=== PATIENT | female | born 1990 | race Caucasian/White ===

== ENCOUNTER 2017-06-18 07:33 | Emergency (ER) | payer MEDICAID ==
[2017-06-18 08:16] LABS: Bilirubin,Urine NEG (Negative); Blood,Urine NEG (Negative); Ketones,Urine NEG (Negative); Leukocyte Esterase,Urine NEG (Negative); Nitrite,Urine NEG (Negative); Protein,Urine <15 mg/dL mg/dL (Negative); Urobilinogen,Urine < 2.0 mg/dL (<2.0)
[2017-06-18 08:24] LABS: RBC,Urine < 1.0 /HPF (0.0-6.0); WBC,Urine < 1.0 /HPF (0.0-6.0)
--- NOTE | 2017-06-18 09:20 | Emergency Department Report ---
ED Female HPI - General Chief complaint: Vaginal Bleeding Stated complaint: VAGINAL BLEEDING/14 WEEKS PREG Time Seen by Provider: 06/18/17 09:08 Source: patient Mode of arrival: Ambulatory Limitations: No Limitations - History of Present Illness Initial comments: This is a 26-year-old female nontoxic, well nourished in appearance, no acute signs of distress presents to the ED complaining of slight vaginal bleeding that occurred this morning x1. They stated she woke up with slight vaginal bleeding noted in her underwear. Patient stated that she laid down and drank some water and has not had any vaginal bleeding. Patient stated episode has only occurred once and described as slight. Patient denies any abdominal pain, or cramping. Patient stated her last appointment with member services coordinator normal ultrasound and stated she is currently with twins. Patient denies any nausea or vomiting, chest pain, shortness of breath, diarrhea, dizziness, fever, chills, numbness or tingling. Patient denies any allergies or past medical history besides asthma. MD Complaint: vaginal bleeding -: Gradual, days(s) (1) Radiation: non-radiating Severity scale (0 -10): 0 Consistency: intermittent Improves with: none Worsens with: none Are you Now?: Yes Last Menstrual Period: 02/27/17 EDC: 12/04/17 Associated Symptoms: vaginal bleeding. denies: vaginal discharge, abdominal pain, nausea/vomiting, fever/chills, headaches, loss of appetite, dysuria, hematuria, rash, seizure, shortness of breath, syncope, weakness - Related Data Sexually active: Yes : 3 Para: 2 A: 0 Allergies Allergy/AdvReac Type Severity Reaction Status Date / Time No Known Allergies Allergy Verified 06/18/17 07:50 ED Review of Systems ROS: Stated complaint: VAGINAL BLEEDING/14 WEEKS PREG Other details as noted in HPI Constitutional: denies: chills, fever Eyes: denies: eye pain, eye discharge, vision change ENT: denies: ear pain, throat pain Respiratory: denies: cough, shortness of breath, wheezing Cardiovascular: denies: chest pain, palpitations Endocrine: no symptoms reported Gastrointestinal: denies: abdominal pain, nausea, diarrhea Genitourinary: denies: urgency, dysuria, discharge Musculoskeletal: denies: back pain, joint swelling, arthralgia Skin: denies: rash, lesions Neurological: denies: headache, weakness, paresthesias Psychiatric: denies: anxiety, depression Hematological/Lymphatic: denies: easy bleeding, easy bruising ED Past Medical Hx - Past Medical History Previous Medical History?: Yes Hx Asthma: Yes - Surgical History Past Surgical History?: No - Social History Smoking Status: Never Smoker Substance Use Type: None ED Physical Exam - General Limitations: No Limitations General appearance: alert, in no apparent distress - Head Head exam: Present: atraumatic, normocephalic, normal inspection - Eye Eye exam: Present: normal appearance, PERRL, EOMI. Absent: scleral icterus, conjunctival injection, nystagmus, periorbital swelling, periorbital tenderness Pupils: Present: normal accommodation - ENT ENT exam: Present: normal exam, normal orophraynx, mucous membranes moist, TM's normal bilaterally, normal external ear exam - Neck Neck exam: Present: normal inspection, full ROM. Absent: tenderness, meningismus, lymphadenopathy, thyromegaly - Respiratory Respiratory exam: Present: normal lung sounds bilaterally. Absent: respiratory distress, wheezes, rales, rhonchi, stridor, chest wall tenderness, accessory muscle use, decreased breath sounds, prolonged expiratory - Cardiovascular Cardiovascular Exam: Present: regular rate, normal rhythm, normal heart sounds. Absent: bradycardia, tachycardia, irregular rhythm, systolic murmur, diastolic murmur, rubs, gallop - GI/Abdominal GI/Abdominal exam: Present: soft, normal bowel sounds. Absent: distended, tenderness, guarding, rebound, rigid, diminished bowel sounds - Rectal Rectal exam: Present: deferred - External exam: Present: normal external exam, other (hose wrapper Adri Torress present during exam). Absent: erythema, swelling, lesions, lacerations , ecchymosis, bleeding Speculum exam: Present: normal speculum exam, other (hose wrapper Adri Torress present during exam. OS closed.). Absent: erythema, vaginal discharge, cervical discharge, vaginal bleeding, foreign body, tissue, laceration Bi-manual exam: Present: normal bi-manual exam, other (hose wrapper Adri Torress present during exam). Absent: cervical motion tendernes, adnexal tenderness, adnexal mass, uterine enlargement, uterine tenderness - Extremities Exam Extremities exam: Present: normal inspection, full ROM, normal capillary refill. Absent: tenderness, pedal edema, joint swelling, calf tenderness - Back Exam Back exam: Present: normal inspection, full ROM. Absent: tenderness, CVA tenderness (R), CVA tenderness (L), muscle spasm, paraspinal tenderness, vertebral tenderness, rash noted - Neurological Exam Neurological exam: Present: alert, oriented X3, CN II-XII intact, normal gait, reflexes normal - Psychiatric Psychiatric exam: Present: normal affect, normal mood - Skin Skin exam: Present: warm, dry, intact, normal color. Absent: rash ED Course Vital Signs 06/18/17 06/18/17 06/18/17 07:43 07:47 11:53 Temperature 98.5 F 98.5 F 98.6 F Pulse Rate 88 88 86 Respiratory 20 18 Rate Blood Pressure 111/68 Blood Pressure 111/68 112/70 [Right] O2 Sat by Pulse 100 100 99 Oximetry - Reevaluation(s) Reevaluation #1: 06/18/17 09:24 Patient is speaking in full sentences with no signs of distress noted. ED Medical Decision Making - Medical Decision Making 26-year-old female presents with vaginal bleeding 1. Ultrasound abdomen and transvaginal has been obtained with normal findings and dictated a radiologist. Patient notified of ultrasound but no further question about the patient. Patient was instructed to follow-up with a member services coordinator in 24 hours or if symptoms worsen or continue presented to the emergency room as soon as possible. Quantitative h[place] with [id number] results. At time time of discharge, the patient does not seem toxic or ill in appearance. No acute signs of distress noted. Patient agrees to discharge treatment plan of care. No further questions noted by the patient. Ultrasound impression and dictated by Dr. Charles; twin A heart rate is 145 age is 15 weeks 1 day estimated due date 12/09/17. Twin B heart rate 154 age 14 weeks 6 days estimated due date 12/01/17 Critical care attestation.: If time is entered above; I have spent that time in minutes in the direct care of this critically ill patient, excluding procedure time. ED Disposition Clinical Impression: Vaginal bleeding Disposition: DC-01 TO HOME OR SELFCARE Is pt being admited?: No Does the pt Need Aspirin: No Condition: Stable Additional Instructions: Follow-up with a member services coordinator in 24 hours or if symptoms worsen or continue presented to the emergency room as soon as possible. Referrals: PRIMARY CARE, [Primary Care Provider] - 3-5 Days ZHAO CAST MD [Staff Physician] - 3-5 Days [facility] [Outside] - 3-5 Days [facility] [Outside] - 3-5 Days Forms: Work/School Release Form(ED)
--- NOTE | 2017-06-18 11:42 | Ultrasound Report ---
OB ULTRASOUND History: Vaginal bleeding during Comparison: None. Technique: Transabdominal ultrasound with Doppler interrogation. Gestation: Twin A Position: Transverse, head to maternal left Amniotic Fluid: Within normal limits Placenta: Anterior Placental Grade: 0 Heart Rate: 145 BPM Cervical length: 4.6 cm (Normal > 3 cm) x It is too early for a anatomical survey BPD: 3.0 cm = 15 w 4 d HC: 11.1 cm = 15 w 2 d AC: 9.4 cm = 15 w 4 d FL: 1.5 cm = 14 w 2 d HC/AC Ratio: 1.17 Cephalic Index: 87.7 Estimated Weight: grams US Gest. Age = 15 w 1 d EDC: 12/09/17 Gestation: Twin B Position: Transverse, head to maternal left Amniotic Fluid: Within normal limits Placenta: Anterior Placental Grade: 0 Heart Rate: 154 BPM Cervical length: 4.6 cm (Normal > 3 cm) x It is too early for a anatomical survey BPD: 2.9 cm = 15 w 2 d HC: 10.7 cm = 15 w 1 d AC: 8.4 cm = 14 w 5 d FL: 1.4 cm = 14 w 2 d HC/AC Ratio: 1.28 Cephalic Index: 82.0 US Gest. Age = 14 w 6 d EDC: 12/11/17
[2017-06-18 11:55] VITALS: BP 112/70
== END 2017-06-18 12:22 | disposition home or self-care (01) ==
LOC: ED 07:33
DX: O20.9 Hemorrhage in early pregnancy, unspecified (principal); J45.909 Unspecified asthma, uncomplicated; Z3A.15 15 weeks gestation of pregnancy
CPT/HCPCS: 36415; 76805; 76810; 81001; 84702

== ENCOUNTER 2018-10-26 17:45 | Emergency (ER) | payer BC ==
--- NOTE | 2018-10-26 21:43 | Emergency Department Report ---
ED General Adult HPI - General Chief complaint: High BP Stated complaint: HYPERTENSION Time Seen by Provider: 10/26/18 21:20 Source: patient Mode of arrival: Ambulatory Limitations: No Limitations - History of Present Illness Initial comments: 27-year-old female that presents emergency room for management of her high blood pressure. Patient denies chest pain. Patient denies shortness of breath. Patient denies fever and chills. Patient denies dizziness. Patient states she's been having occasional headaches over the past 2 weeks but does not have a headache right now. Patient states her blood pressure and elevated for 2 weeks and she went to her dentist today for management of dental pain and was found to have an elevated diastolic number. Patient states her blood pressure was 140/118 at the dentist office he was sent here for management. Patient states that her blood pressure on arrival here is 161/108. Patient denies any symptoms of high blood pressure. -: Sudden Consistency: constant Improves with: rest Worsens with: movement Associated Symptoms: denies other symptoms, headaches. denies: confusion, chest pain, cough, diaphoresis, fever/chills, loss of appetite, malaise, nausea/vomiting, rash, seizure, shortness of breath, syncope, weakness Treatments Prior to Arrival: none - Related Data Previous Rx's Medication Instructions Recorded Last Taken Type Amoxicillin 500 mg PO QID #40 capsule 10/10/18 Unknown Rx Chlorhexidine Mouthwash [Peridex] 15 ml MM BID #1 bottle 10/10/18 Unknown Rx Ketorolac [Toradol] 10 mg PO Q6H PRN #15 tablet 10/10/18 Unknown Rx Lidocaine Viscous 2% 15 ml MM Q4H #240 udc 10/10/18 Unknown Rx amLODIPine [Norvasc] 2.5 mg PO DAILY 14 Days #14 tablet 10/26/18 Unknown Rx Allergies Allergy/AdvReac Type Severity Reaction Status Date / Time No Known Allergies Allergy Verified 06/18/17 07:50 ED Review of Systems ROS: Stated complaint: HYPERTENSION Other details as noted in HPI Constitutional: denies: chills, fever Eyes: denies: eye pain, eye discharge, vision change ENT: denies: ear pain, throat pain Respiratory: denies: cough, shortness of breath, wheezing Cardiovascular: denies: chest pain, palpitations Endocrine: no symptoms reported Gastrointestinal: denies: abdominal pain, nausea, diarrhea Genitourinary: denies: urgency, dysuria, discharge Musculoskeletal: denies: back pain, joint swelling, arthralgia Skin: denies: rash, lesions Neurological: headache. denies: weakness, paresthesias Psychiatric: denies: anxiety, depression Hematological/Lymphatic: denies: easy bleeding, easy bruising ED Past Medical Hx - Past Medical History Previous Medical History?: Yes Hx Asthma: Yes - Surgical History Past Surgical History?: Yes Additional Surgical History: - Family History Family history: hypertension - Social History Smoking Status: Current Every Day Smoker Substance Use Type: None - Medications Home Medications: Home Medications Medication Instructions Recorded Confirmed Last Taken Type Amoxicillin 500 mg PO QID #40 capsule 10/10/18 Unknown Rx Chlorhexidine Mouthwash [Peridex] 15 ml MM BID #1 bottle 10/10/18 Unknown Rx Ketorolac [Toradol] 10 mg PO Q6H PRN #15 tablet 10/10/18 Unknown Rx Lidocaine Viscous 2% 15 ml MM Q4H #240 udc 10/10/18 Unknown Rx amLODIPine [Norvasc] 2.5 mg PO DAILY 14 Days #14 tablet 10/26/18 Unknown Rx ED Physical Exam - General Limitations: No Limitations General appearance: alert, in no apparent distress - Head Head exam: Present: atraumatic, normocephalic - Eye Eye exam: Present: normal appearance - ENT ENT exam: Present: mucous membranes moist - Neck Neck exam: Present: normal inspection - Respiratory Respiratory exam: Present: normal lung sounds bilaterally. Absent: respiratory distress - Cardiovascular Cardiovascular Exam: Present: regular rate, normal rhythm. Absent: systolic murmur, diastolic murmur, rubs, gallop - GI/Abdominal GI/Abdominal exam: Present: soft, normal bowel sounds. Absent: distended, tenderness, guarding, rebound - Extremities Exam Extremities exam: Present: normal inspection - Back Exam Back exam: Present: normal inspection - Neurological Exam Neurological exam: Present: alert, oriented X3 - Psychiatric Psychiatric exam: Present: normal affect, normal mood - Skin Skin exam: Present: warm, dry, intact, normal color. Absent: rash ED Course Vital Signs 10/26/18 10/26/18 10/26/18 17:56 21:42 22:45 Temperature 98.3 F Pulse Rate 103 H 76 Respiratory 20 Rate Blood Pressure 161/108 Blood Pressure 148/107 143/96 [Right] O2 Sat by Pulse 100 Oximetry - Reevaluation(s) Reevaluation #1: Initial evaluation done. We'll recheck the patient's blood pressure. 10/26/18 21:40 Patient's blood pressure has improved with a 2.5 mg of Norvasc. Patient states she is symptom free. Patient has no complaints at this time. Patient stable for discharge. Patient given discharge instructions. Patient was discharged home with all discharge instructions and follow-up instructions. Patient also given a prescription for Norvasc. 10/26/18 22:56 ED Medical Decision Making - Medical Decision Making 27-year-old female presents for management of her high blood pressure. Patient's blood pressure is elevated in ER. Patient has been having her blood pressure for 2 weeks. Patient will be given a blood pressure medication and discharged home. Patient is stable for discharge. Patient given discharge instructions. Patient given return to ER structures. Patient advised to monitor her blood pressure twice to 3 times a day and keep a long and takes a long to her primary care visit. Patient instructed to follow up with primary care in 2-3 days. Blood pressure responded well in ER. - Differential Diagnosis high blood pressure. Uncontrolled blood pressure Critical care attestation.: If time is entered above; I have spent that time in minutes in the direct care of this critically ill patient, excluding procedure time. ED Disposition Clinical Impression: Essential hypertension Disposition: DC-01 TO HOME OR SELFCARE Is pt being admited?: No Does the pt Need Aspirin: No Condition: Stable Instructions: Heart Healthy Diet (ED), How to Take a Blood Pressure (ED), DASH Eating Plan (ED), Low Sodium Diet (ED), Hypertension (ED) Additional Instructions: Is to follow-up with primary care in 2-3 days. Patient to return to ER if condition worsens. Patient to increase water. Patient to follow heart healthy and low-salt diet. Patient to monitor blood pressure as instructed. Patient to keep a blood pressure log. Patient to avoid NSAIDs. Prescriptions: amLODIPine [Norvasc] 2.5 mg PO DAILY 14 Days #14 tablet Referrals: PRIMARY CARE, [Primary Care Provider] - 2-3 Days JACOB AUGUSTE MD [Staff Physician] - 2-3 Days Time of Disposition: 22:57
[2018-10-26] MEDS ORDERED: NORVASC PO ONE (21:44)
[2018-10-26 22:46] VITALS: BP 143/96
== END 2018-10-26 23:00 | disposition home or self-care (01) ==
LOC: ED 17:45
DX: I10 Essential (primary) hypertension (principal); J45.909 Unspecified asthma, uncomplicated; F17.200 Nicotine dependence, unspecified, uncomplicated
CPT/HCPCS: 99282